=== PATIENT | female | born 1980 | race Caucasian/White ===

== ENCOUNTER 2019-03-07 06:55 | Emergency (ER) | payer OTHER ==
[~2019-03-07] VITALS: Ht 170.2 cm; Wt 65.8 kg
[~2019-03-07 06:55] MED LIST: CIPRO250 M1 PO; HYDROCODON-ACE1 EAC7 PO
[2019-03-07 08:50] LABS: HEMATOCRIT 35.7 % (37.0-47.0); HEMOGLOBIN 11.5 gm/dL (12.0-15.0); MCHC 32.2 g/dL (28.0-37.0); MCV 77.7 fL (80.0-100.0); PLATELET COUNT 380 thou/uL (150-400); RBC 4.59 mil/uL (4.20-5.00); RDW 16.7 % (10.5-14.5); WBC 8.1 thou/uL (4.0-11.0)
[2019-03-07 09:09] LABS: ANION GAP 7 mmol/L (7-16); BUN 9 mg/dL (7-18); CALCIUM 8.4 mg/dL (8.5-10.1); CHLORIDE 104 mmol/L (98-107); CO2 28 mmol/L (21-32); CREATININE 0.7 mg/dL (0.6-1.0); GLUCOSE 100 mg/dL (74-106); SODIUM 139 mmol/L (136-145)
[2019-03-07 09:10] LABS: URINE BILIRUBIN NEGATIVE (Negative); URINE BLOOD NEGATIVE (Negative); URINE CLARITY CLEAR; URINE COLOR YELLOW; URINE GLUCOSE-RANDOM* NEGATIVE (Negative); URINE KETONES NEGATIVE (Negative); URINE NITRITE-REFLEX NEGATIVE (Negative); URINE PROTEIN (DIPSTICK) NEGATIVE (Negative)
[2019-03-07 09:11] LABS: URINE LEUKOCYTES-REFLEX 1+ (Negative)
[2019-03-07 09:17] LABS: AMP/METHAMP POSITIVE (Negative); BARBITURATES Negative (Negative); BENZODIAZEPINES Negative (Negative); COCAINE Negative (Negative); METHADONE Negative (Negative); OPIATES Negative (Negative); PCP Negative (Negative)
[2019-03-07 09:18] LABS: BACTERIA-REFLEX >30 Many /HPF (None Seen); CASTS None Seen /LPF (None Seen); CRYSTALS None Seen /LPF (None Seen); SQUAMOUS >10 Many /LPF (0-3)
[2019-03-07 09:19] LABS: URINE RBC 0-2 Rare /HPF (0-2); URINE WBC-REFLEX 6-15 Few /HPF (0-5)
[2019-03-07 09:20] LABS: ALBUMIN 3.4 g/dL (3.4-5.0); MAGNESIUM 1.9 mg/dL (1.8-2.4); SGOT 11 U/L (15-37); SGPT 14 U/L (30-65); TOTAL BILIRUBIN 0.1 mg/dL (<0.1-1.0); TOTAL PROTEIN 6.9 g/dL (6.4-8.2); TROPONIN-I <0.06 ng/mL (<0.06)
[2019-03-07 09:24] LABS: ABSOLUTE NEUTROPHILS 5.7 thou/uL (1.4-8.2)
[2019-03-07 09:26] LABS: ANISOCYTOSIS SLIGHT; MICROCYTES SLIGHT
--- NOTE | 2019-03-07 09:30 | EKG ---
[address] [place] [address] ELECTROCARDIOGRAM REPORT Name: GABRIEL VO Room #: [facility] DANIELA Simeon#: [id number] ������������������ Admission: 03/07/19 ������������������ Attend Phys: Discharge: ������������������ Date of : 76 Report #: [id number] ����������������������������������������������������������������� [id number] THIS REPORT FOR: //name// [facility] ED Test Date: 2019-03-07 Test Time: 07:15:35 Pat Name: GABRIEL VO Department: Room: Gender: F Inspector Timers: [facility] : 1980 Requested By: Daryl Rondon Order Number: [id number] MD: Steffen Mckenna Measurements Intervals Points Rate: 85 P: 61 MD: 107 QRS: 83 QRSD: 97 T: 72 QT: 369 QTc: 439 Interpretive Statements Sinus rhythm Poor R wave progression No previous ECG available for comparison Electronically Signed On 03-07-2019 9:30:17 CDT by Steffen Mckenna [email or web address] ��������������������������������������������� <ELECTRONICALLY SIGNED> ���������������������������������������� By: Steffen Mckenna MD, [facility] ��������������������������������������������� 03/07/1932 0715 4 Steffen Mckenna MD, FACC /EPI
[2019-03-07] MEDS ORDERED: NAPROSYN500 MG PO (09:31)
[2019-03-07 09:48] VITALS: BP 114/68
== END 2019-03-07 09:51 | disposition home or self-care (01) ==
LOC: ER 06:55
PROVIDERS: Emergency Medicine
DX: J06.9 Acute upper respiratory infection, unspecified (principal); F15.10 Other stimulant abuse, uncomplicated; D64.9 Anemia, unspecified; R07.89 Other chest pain; R20.2 Paresthesia of skin; F17.210 Nicotine dependence, cigarettes, uncomplicated; Z88.0 Allergy status to penicillin